=== PATIENT | female | born 1965 | race Caucasian/White ===

== ENCOUNTER 2018-04-06 16:06 | Emergency (ER) | payer OTHER ==
[~2018-04-06] VITALS: Ht 154.9 cm; Wt 71.7 kg
[2018-04-06] MEDS ORDERED: LIPITOR10 MG PO (16:21)
[2018-04-06] MEDS ORDERED: PROZAC20 MG PO (16:21)
[2018-04-06] MEDS ORDERED: AMBIEN5 MG PO (16:22)
[2018-04-06] MEDS ORDERED: IBUPROFEN 600600 M1 PO (17:31)
[2018-04-06] MEDS ORDERED: NORCO 5-325 TA1 EACH PO (17:31)
[2018-04-06 18:00] VITALS: BP 109/50
== END 2018-04-06 18:00 | disposition home or self-care (01) ==
LOC: M.ERS 16:06
DX: M79.671 Pain in right foot (principal); M79.672 Pain in left foot; Z90.710 Acquired absence of both cervix and uterus; Z90.722 Acquired absence of ovaries, bilateral